=== PATIENT | female | born 1995 | race Caucasian/White ===

== ENCOUNTER 2019-06-25 15:33 | Outpatient (CLI) | payer OTHER ==
[~2019-06-25] VITALS: Ht 165.1 cm; Wt 80.7 kg
[~2019-06-25 15:33] MED LIST: PREN-6 PO
[2019-06-25 15:44] VITALS: Ht 165.1 cm; Wt 80.7 kg
--- NOTE | 2019-06-25 18:48 | TRIAGE ---
OB Triage Datetime Report Generated by CPN: 06/25/2019 18:48 Datetime: 06/25/2019 15:40 Time of Arrival: 06/25/2019 15:10 Arrived By: Ambulatory Arrived From: Office Contractions: Denies/Absent Rupture of Membranes: Denies Vaginal Bleeding: Normal Show Vaginal Discharge: Denies Recent Sexual Intercouse: Denies Abdominal Trauma: Not Applicable Patient Complaints: None Time Provider Notified: 06/25/2019 16:05 Provider Notified: Sia Initial Plan: FHR doppler Datetime: 06/25/2019 15:35 Stage of : OB Triage Assessment Type: Triage Maternal Assessment Level of Consciousness: Keenly Alert, Responsive DTR's/Clonus: DTRs 2+; No Clonus Headache: Denies Blurred Vision: No Respiratory Effort: Unlabored; Regular Rhythm; Equal Expansion Breath Sounds, Left: Clear and Equal Breath Sounds, Right: Clear and Equal Nausea/Vomiting: Denies RUQ Epigastric Pain: Denies Lower Extremities Edema: None Degree: None Upper Extremities Edema: None Degree: None Facial Edema: None Fall Risk Assessment History of Falling: (0) No Secondary Diagnosis: (0) No Ambulatory Aid: (0) Bedrest/Nurse Assist IV Therapy: (0) No Gait: (0) Normal/Bedrest/Immobile Mental Status: (0) Oriented to Own Ability
--- NOTE | 2019-06-25 19:53 | PN ---
Triage Information Date/Time 06/25/19 Reason for visit: twin gestation 21w2d with one fetus demised on todays U/S sent by clinic , seen by Dr mcneil who refuse to receive due to non compliance Weeks of Gestation 21w2d /Para with twin gestation with x1 demise Diabetes: none Hypertention: none Objective Heart Rate: 140's (one fetus demised one alive one demised 17wplus one alive 22w measured today outside hosp) Contractions: None Disposition: Discharge Assessment/Plan A IUP 21w2d twin gestation with one demised P advise to go for f/u michelle KENDALL KHAN MD Jun 25, 2019 19:53
== END 2019-06-25 18:30 | disposition home or self-care (01) ==
LOC: L-D 15:33 → OBT 15:33
PROVIDERS: ATTEND Obstetrics & Gynecology
DX: O30.002 Twin pregnancy, unspecified number of placenta and unspecified number of amniotic sacs, second trimester (principal); Z3A.21 21 weeks gestation of pregnancy; Z37.3 Twins, one liveborn and one stillborn
CPT/HCPCS: G0463